=== PATIENT | male | born 1985 ===

== ENCOUNTER 2017-05-27 01:29 | Emergency (ER) | payer MEDICAID ==
[2017-05-27 01:30] VITALS: BMI 27.3
[2017-05-27] MEDS ORDERED: DiphenhydrAMINE 50 mg/ml Inj ONE (02:29)
--- NOTE | 2017-05-27 02:35 | ED PDOC ---
HPI: Psych/Substance Abuse Time Seen by Provider: 05/27/17 01:38 Chief Complaint (Nursing): Alcohol Ingestion Chief Complaint (Provider): Alcohol Ingestion ED Caveat: Intoxicated History Per: EMS, Other (police department) History/Exam Limitations: intoxication Onset/Duration Of Symptoms: Mins (prior to arrival) Current Symptoms Are (Timing): Still Present Additional Complaint(s): 31 year old male who presents to the emergency department via EMS, under police custody secondary to warrant, for an evaluation of intoxication prior to arrival. Denied any drug or intoxication use, however, appears intoxicated. Patient also reporting diffuse rash to buttocks. PMD: none provided Past Medical History Reviewed: Vital Signs, Unable To Obtain (intoxication) Vital Signs: Last Vital Signs Temp 98.1 F 05/27/17 01:43 Pulse 90 05/27/17 01:43 Resp 16 05/27/17 01:43 BP 157/108 H 05/27/17 01:43 Pulse Ox 98 05/27/17 01:43 - Medical History PMH: Anxiety, Gastrointestinal Ulcer - Surgical History Surgical History: No Surg Hx - Family History Family History: States: Unknown Family Hx - Social History Current smoker - smoking cessation education provided: No Alcohol: > 2 Drinks/Day Drugs: Denies - Home Medications Home Medications: Ambulatory Orders Medication Instructions Recorded Cetirizine Hydrochloride [Zyrtec] 10 mg PO DAILY #10 tab 05/29/14 Methylprednisolone [Medrol Dose 4 mg PO DAILY #21 mg 05/29/14 Pack (21 tabs)] Naproxen 500 mg PO Q12 #20 tab 06/25/14 Famotidine [Pepcid] 20 mg PO DAILY #30 tab 10/10/14 Codeine Phosphate/Promethazi 5 ml PO Q6 #80 ml 10/23/14 [Promethazine with Codeine 10 mg/5 ml-6.25 mg/] Guaifenesin/Pseudoephedrne HCl 1 tab PO DAILY PRN #30 ter 10/23/14 [Mucinex D 600 mg-60 mg] Butenafine HCl [Lotrimin Ultra] 0.5 gm TP BID #30 cream..g. 11/02/15 Clotrimazole 1% Cream [Lotrimin 1% 15 applic EXT BID #1 tube 05/27/17 CREAM] - Allergies Allergies/Adverse Reactions: Allergies Allergy/AdvReac Type Severity Reaction Status Date / Time No Known Allergies Allergy Verified 05/29/14 08:13 Review of Systems ROS Statement: Except As Marked, All Systems Reviewed And Found Negative Skin: Positive for: Rash (buttocks) Physical Exam - Reviewed Nursing Documentation Reviewed: Yes Vital Signs Reviewed: Yes - Physical Exam Appears: Positive for: No Acute Distress Head Exam: Positive for: ATRAUMATIC, NORMAL INSPECTION, NORMOCEPHALIC Skin: Positive for: Rash (erythematous buttocks). Negative for: Normal Color Cardiovascular/Chest: Positive for: Regular Rate, Rhythm, Chest Non Tender Respiratory: Positive for: Normal Breath Sounds. Negative for: Decreased Breath Sounds, Respiratory Distress Gastrointestinal/Abdominal: Positive for: Normal Exam, Soft. Negative for: Tenderness Neurologic/Psych: Positive for: Alert, Mood/Affect (intoxicated; agitated), Gait (unsteady) - ECG O2 Sat by Pulse Oximetry: 98 (RA) Pulse Ox Interpretation: Normal Medical Decision Making Medical Decision Making: Initial Impression: Alcohol intoxication; dermitis Initial Plan: * Alcohol serum * Ativan 2mg IM * Benadryl 50mg PO * Haldol 5mg IM ___ Time: 0230 --Patient refusing bloodwork and medication --Agitation level increased --Requiring restraints 600 Pt. awake and alert, steady gait, will d/c home. Scribe Attestation: Documented by Francia Bee, acting as a scribe for Vic Rivera MD. Provider Scribe Attestation: All medical record entries made by the Scribe were at my direction and personally dictated by me. I have reviewed the chart and agree that the record accurately reflects my personal performance of the history, physical exam, medical decision making, and the department course for this patient. I have also personally directed, reviewed, and agree with the discharge instructions and disposition. Disposition - Clinical Impression Clinical Impression: Alcohol abuse, Dermatitis - Disposition Referrals: Alcoholics Anonymous [Outside] [facility] [Outside] Disposition Time: 06:00 Condition: STABLE Prescriptions: Clotrimazole 1% Cream [Lotrimin 1% CREAM] 15 applic EXT BID #1 tube Instructions: Abuse of Alcohol (ED), Dermatitis (ED) Forms: [employer] Connect (Slovenian)
[2017-05-27 04:48] VITALS: TEMP 98.2
[2017-05-27 04:51] VITALS: BP 136/81; PULSE 90; RESP 17
[2017-05-27 06:41] VITALS: O2SAT 98
== END 2017-05-27 06:22 | disposition home or self-care (01) ==
LOC: H.ER 01:29
DX: F10.129 Alcohol abuse with intoxication, unspecified (principal); L30.9 Dermatitis, unspecified; F41.9 Anxiety disorder, unspecified
CPT/HCPCS: 80320; 96372; 99284; J1630; J2060

== ENCOUNTER 2017-07-04 20:55 | Emergency (ER) | payer MEDICAID ==
[2017-07-04 20:55] VITALS: BMI 27.3
[2017-07-04 21:03] VITALS: BP 154/98; PULSE 230; RESP 24; TEMP 99.1; O2SAT 95
--- NOTE | 2017-07-04 22:15 | ED PDOC ---
HPI: Psych/Substance Abuse Time Seen by Provider: 07/04/17 21:03 Chief Complaint (Nursing): Substance Abuse Chief Complaint (Provider): Substance abuse ED Caveat: Intoxicated History Per: EMS History/Exam Limitations: intoxication Additional Complaint(s): 31yo male, brought to ED by Mary VINES after he was found intoxicated, lying outside on the grass. Patient suspected to have used PCP per the police. Upon arrival, patient easily arousable. A full HPI and ROS is limited due to patient' s intoxicates status. Past Medical History Reviewed: Historical Data, Nursing Documentation, Vital Signs Vital Signs: Last Vital Signs Temp 99.1 F 07/04/17 21:00 Pulse 230 H 07/04/17 21:00 Resp 24 07/04/17 21:00 BP 154/98 H 07/04/17 21:00 Pulse Ox 95 07/04/17 21:00 - Medical History PMH: Anxiety, Gastrointestinal Ulcer - Family History Family History: States: Unknown Family Hx - Social History Alcohol: Occasional Drugs: Denies - Home Medications Home Medications: Ambulatory Orders Medication Instructions Recorded Cetirizine Hydrochloride [Zyrtec] 10 mg PO DAILY #10 tab 05/29/14 Methylprednisolone [Medrol Dose 4 mg PO DAILY #21 mg 05/29/14 Pack (21 tabs)] Naproxen 500 mg PO Q12 #20 tab 06/25/14 Famotidine [Pepcid] 20 mg PO DAILY #30 tab 10/10/14 Codeine Phosphate/Promethazi 5 ml PO Q6 #80 ml 10/23/14 [Promethazine with Codeine 10 mg/5 ml-6.25 mg/] Guaifenesin/Pseudoephedrne HCl 1 tab PO DAILY PRN #30 ter 10/23/14 [Mucinex D 600 mg-60 mg] Butenafine HCl [Lotrimin Ultra] 0.5 gm TP BID #30 cream..g. 11/02/15 Clotrimazole 1% Cream [Lotrimin 1% 15 applic EXT BID #1 tube 05/27/17 CREAM] - Allergies Allergies/Adverse Reactions: Allergies Allergy/AdvReac Type Severity Reaction Status Date / Time No Known Allergies Allergy Verified 05/29/14 08:13 Review of Systems Review Of Systems: ROS cannot be obtained secondary to pt's inabilty to answer questions. Physical Exam - Reviewed Nursing Documentation Reviewed: Yes Vital Signs Reviewed: Yes - Physical Exam Appears: Positive for: No Acute Distress Head Exam: Positive for: ATRAUMATIC, NORMAL INSPECTION, NORMOCEPHALIC Skin: Positive for: Normal Color Neck: Positive for: Supple Cardiovascular/Chest: Positive for: Tachycardia Respiratory: Positive for: Normal Breath Sounds. Negative for: Respiratory Distress Neurologic/Psych: Positive for: Mood/Affect (patient lethargic but easily arousable) - ECG O2 Sat by Pulse Oximetry: 95 (RA) Pulse Ox Interpretation: Normal Medical Decision Making Medical Decision Making: Impression: Alcohol/substance abuse Plan: -- Labs -- EKG Time: 2136 Patient awake, alert and oriented x3 with steady gait. He is requesting to be discharge home. Patient states his marijuana might have been laced with something. Patient stable for discharge home. Scribe Attestation: Documented by Nayely Le acting as a scribe for Shaun Palacios MD. Provider Attestation: All medical record entries made by the Scribe were at my direction and personally dictated by me. I have reviewed the chart and agree that the record accurately reflects my personal performance of the history, physical exam, medical decision making, and the department course for this patient. I have also personally directed, reviewed, and agree with the discharge instructions and disposition. Disposition - Clinical Impression Clinical Impression: Alcohol use - Disposition Disposition: Routine/Home Disposition Time: 21:37 Condition: STABLE Instructions: Alcohol Intoxication (ED) Forms: [place] [employer] (Greenlandic)
--- NOTE | 2017-07-05 14:11 | CARD ---
APPROVED REPORT EKG Measurement Heart [id number] <Conclusion> Sinus tachycardia Otherwise normal ECG
== END 2017-07-04 21:38 | disposition home or self-care (01) ==
LOC: H.ER 20:55
DX: F10.129 Alcohol abuse with intoxication, unspecified (principal); F41.9 Anxiety disorder, unspecified

== ENCOUNTER 2018-04-28 19:14 | Emergency (ER) | payer MEDICAID ==
--- NOTE | 2018-04-28 20:20 | ED PDOC ---
HPI: Psych/Substance Abuse Chief Complaint (Provider): substance abuse History Per: Patient, EMS Additional Complaint(s): 32 y/o male brought in by EMS for evaluation of possible substance abuse. Patient was found in public with his pants down. Patient awake, admits to drinking "a lot" and smoking "dust" tonight. Patient denies acute physical or psychiatric complaints. <Lilli Greer - Last Filed: 04/29/18 05:54> <Vic Rivera - Last Filed: 04/29/18 07:34> Time Seen by Provider: 04/28/18 20:01 Chief Complaint (Nursing): Substance Abuse Past Medical History Reviewed: Historical Data, Nursing Documentation, Vital Signs Vital Signs: Last Vital Signs Temp 96.9 F L 04/28/18 19:21 Pulse 105 H 04/28/18 19:21 Resp 18 04/28/18 19:21 BP 144/85 04/28/18 19:21 Pulse Ox 96 04/28/18 19:21 - Medical History PMH: No Chronic Diseases - Surgical History Surgical History: No Surg Hx - Family History Family History: States: No Known Family Hx <Lilli Greer - Last Filed: 04/29/18 05:54> Vital Signs: Last Vital Signs Temp 96.9 F L 04/28/18 19:21 Pulse 76 04/29/18 05:45 Resp 14 04/29/18 05:45 BP 119/71 04/29/18 05:45 Pulse Ox 96 04/29/18 07:28 <Vic Rivera - Last Filed: 04/29/18 07:34> - Allergies Allergies/Adverse Reactions: Allergies Allergy/AdvReac Type Severity Reaction Status Date / Time Unobtainable Allergy Verified 04/28/18 19:20 Review of Systems ROS Statement: Except As Marked, All Systems Reviewed And Found Negative <Lilli Greer - Last Filed: 04/29/18 05:54> Physical Exam - Reviewed Nursing Documentation Reviewed: Yes Vital Signs Reviewed: Yes - Physical Exam Appears: Positive for: Well, Non-toxic, No Acute Distress (intoxicated; slurred speech) Head Exam: Positive for: ATRAUMATIC, NORMAL INSPECTION, NORMOCEPHALIC Skin: Positive for: Normal Color Eye Exam: Positive for: Normal appearance ENT: Positive for: Normal ENT Inspection Cardiovascular/Chest: Positive for: Regular Rate, Rhythm Respiratory: Positive for: Normal Breath Sounds Gastrointestinal/Abdominal: Positive for: Normal Exam Back: Positive for: Normal Inspection Extremity: Positive for: Normal ROM Neurologic/Psych: Positive for: Alert, Oriented (x2) <Lilli Greer - Last Filed: 04/29/18 05:54> - Laboratory Results Result Diagrams: 04/28/18 20:20 04/28/18 20:20 - ECG O2 Sat by Pulse Oximetry: 96 - Progress ED Course And Treament: -cbc -cmp -alcohol -urine drug screen Patient attempting to get out of bed, agitated, unsteady gait. Patient unwilling to comply with alternative measures offered Patient restrained and medicated for acute agitation/safety 23:30 Patient sleeping, no distress. Vitals stable on monitor 04/29/18 1:00 Patient sleeping, no distress. Vitals stable on monitor 2:30 Patient sleeping, no distress. Vitals stable on monitor 4:00 Patient sleeping, no distress. Vitals stable on monitor 5:30 Patient sleeping, no distress. Vitals stable on monitor <Lilli Greer - Last Filed: 04/29/18 05:54> - Laboratory Results Result Diagrams: 04/28/18 20:20 04/28/18 20:20 <Vic Rivera - Last Filed: 04/29/18 07:34> Medical Decision Making Medical Decision MakinAM Will endorse to Dr. Oden pending sobriety <Vic Rivera - Last Filed: 04/29/18 07:34> Disposition - Disposition Disposition Time: 06:00 Patient Signed Over To: Vic Rivera Handoff Comments: pending sobriety/re-eval <Lilli Greer - Last Filed: 04/29/18 05:54> - Patient ED Disposition Is Patient to be Admitted: Transfer of Care - Disposition Disposition: Transfer of Care Disposition Time: 07:00 Patient Signed Over To: Noa Oden <Vic Rivera - Last Filed: 04/29/18 07:34> - Clinical Impression Clinical Impression: Polysubstance abuse - Disposition Condition: STABLE Instructions: Polysubstance Abuse
[2018-04-28 20:35] LABS: BASO % 0.3 % (0.0-2.0); EOS # 0.1 K/uL (0.0-0.7); EOS % 1.2 % (0.0-4.0); HEMOGLOBIN 15.8 g/dL (12.0-18.0); LYMPH % 30.9 % (20.0-40.0); MEAN CELL VOLUME 91.2 fl (80.0-94.0); MEAN CORPUSCULAR HEMOGLOBIN 31.2 pg (27.0-31.0); MEAN CORPUSCULAR HGB CONC 34.2 g/dL (33.0-37.0); MONO # 0.6 K/uL (0.0-0.8); MONO % 5.7 % (0.0-10.0); NEUT % 61.9 % (50.0-75.0); NRBC % 0.3 % (0.0-0.0); RBC 5.07 Mil/uL (4.40-5.90); RED CELL DISTRIBUTION WIDTH 13.3 % (11.5-14.5); WHITE BLOOD COUNT 9.7 K/uL (4.8-10.8)
[2018-04-28 20:41] LABS: ALB/GLOB RATIO 1.3 (1.0-2.1); ALBUMIN 4.6 g/dL (3.5-5.0); ALT/SGPT 44 U/L (21-72); AST/SGOT 40 U/L (17-59); BLOOD UREA NITROGEN 15 mg/dl (9-20); CALCIUM 9.2 mg/dL (8.4-10.2); GFR NON-AFRICAN AMERICAN > 60
[2018-04-28 22:13] LABS: BARBITURATES, UR NEGATIVE (NEGATIVE); BENZODIAZEPINES, UR NEGATIVE (NEGATIVE); OPIATES, UR NEGATIVE (NEGATIVE); PHENCYCLIDINE, UR POSITIVE (NEGATIVE)
--- NOTE | 2018-04-29 07:28 | ED PDOC ---
- Laboratory Results Result Diagrams: 04/28/18 20:20 04/28/18 20:20 - ECG O2 Sat by Pulse Oximetry: 96 (RA) Pulse Ox Interpretation: Normal Medical Decision Making Medical Decision Making: Time: 07 -- Patient endorsed to me by Dr. Rivera, pending clinical sobriety. Time: 950 -- At this time, patient is alert and oriented (x3) with a steady gait. Patient is stable for discharge home. Scribe Attestation: Documented by Gil Carrasco, acting as a scribe for Noa Oden MD. Provider Scribe Attestation: All medical record entries made by the Scribe were at my direction and personally dictated by me. I have reviewed the chart and agree that the record accurately reflects my personal performance of the history, physical exam, medical decision making, and the department course for this patient. I have also personally directed, reviewed, and agree with the discharge instructions and disposition. Disposition Counseled Patient/Family Regarding: Diagnosis, Need For Followup - Clinical Impression Clinical Impression: Polysubstance abuse, Alcohol abuse with intoxication - Disposition Disposition: Routine/Home Disposition Time: 09:52 Condition: STABLE Additional Instructions: FOLLOW-UP WITH PMD WITHIN 2 DAYS FOR REEVALUATION. Instructions: Alcohol Abuse and Alcoholism (DC), Polysubstance Abuse Forms: [employer] (Estonian)
[2018-04-29 10:28] VITALS: BP 132/89; PULSE 83; RESP 16; TEMP 98.4; O2SAT 98
== END 2018-04-29 10:25 | disposition home or self-care (01) ==
LOC: EDBD 19:14 → MERGE 19:14 → H.ER 19:14
DX: F10.129 Alcohol abuse with intoxication, unspecified (principal); Y90.7 Blood alcohol level of 200-239 mg/100 ml
CPT/HCPCS: 80053; 80320; 80324; 80345; 80346; 80349; 80353; 80358; 80361; 82948; 83992; 85025; 96372; 99285; J1630; J2060

== ENCOUNTER 2018-05-18 02:42 | Emergency (ER) | payer SELFPAY ==
[2018-05-18 02:42] VITALS: BMI 27.3
[2018-05-18 02:54] VITALS: TEMP 99.5; O2SAT 97
--- NOTE | 2018-05-18 03:12 | ED PDOC ---
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 According to EMS and patient, he did drugs and was found trespassing on private property, then arrested. Upon ED arrival, patient was immediately released from police custody. He admits to smoking marijuana rolled and dipped in PCP with his girlfriend and then somehow, someone "played a prank" on him and told him to go somewhere, which ended up being the private property where he was found trespassing. Patient also believed the geophysics scientist were "pranking" him. Otherwise denies depression, suicidal ideation, and homicidal ideation. Patient offers no physical complaints at this time. PMD: none provided Past Medical History Reviewed: Historical Data, Nursing Documentation, Vital Signs Vital Signs: Last Vital Signs Temp 99.5 F 05/18/18 02:46 Pulse 114 H 05/18/18 02:46 Resp 20 05/18/18 02:46 BP 131/100 H 05/18/18 02:46 Pulse Ox 97 05/18/18 02:46 - Medical History PMH: Anxiety, Gastrointestinal Ulcer - Surgical History Other surgeries: left great toe surgery - Family History Family History: States: Unknown Family Hx - Social History Current smoker - smoking cessation education provided: No Alcohol: Social Drugs: Cannabis, Other (PCP) - Home Medications Home Medications: Ambulatory Orders Medication Instructions Recorded Cetirizine Hydrochloride [Zyrtec] 10 mg PO DAILY #10 tab 05/29/14 Methylprednisolone [Medrol Dose 4 mg PO DAILY #21 mg 05/29/14 Pack (21 tabs)] RX: Naproxen 500 mg PO Q12 #20 tab 06/25/14 Famotidine [Pepcid] 20 mg PO DAILY #30 tab 10/10/14 Codeine Phosphate/Promethazi 5 ml PO Q6 #80 ml 10/23/14 [Promethazine with Codeine 10 mg/5 ml-6.25 mg/] Guaifenesin/Pseudoephedrne HCl 1 tab PO DAILY PRN #30 ter 10/23/14 [Mucinex D 600 mg-60 mg] Butenafine HCl [Lotrimin Ultra] 0.5 gm TP BID #30 cream..g. 11/02/15 RX: Clotrimazole 1% Cream 15 applic EXT BID #1 tube 05/27/17 [Lotrimin 1% CREAM] - Allergies Allergies/Adverse Reactions: Allergies Allergy/AdvReac Type Severity Reaction Status Date / Time No Known Allergies Allergy Verified 04/30/18 08:04 Review of Systems ROS Statement: Except As Marked, All Systems Reviewed And Found Negative Psych: Positive for: Other (marijuana and PCP use). Negative for: Depression, Suicidal ideation (or homicidal ideation) Physical Exam - Reviewed Nursing Documentation Reviewed: Yes Vital Signs Reviewed: Yes - Physical Exam Appears: Positive for: No Acute Distress Head Exam: Positive for: ATRAUMATIC, NORMOCEPHALIC Skin: Positive for: Normal Color, Warm Eye Exam: Positive for: Normal appearance, EOMI, PERRL Extremity: Positive for: Normal ROM. Negative for: Tenderness, Swelling Neurologic/Psych: Positive for: Alert, Oriented (x3), Gait (steady), Other (s peech clear) - ECG O2 Sat by Pulse Oximetry: 97 (RA) Pulse Ox Interpretation: Normal Medical Decision Making Medical Decision Making: Time: 307 Initial Impression: substance abuse Initial Plan: --Pt stable for discharge. There is no further medical or psychiatric intervention required at this time in the ED. Scribe Attestation: Documented by Alice Harding, acting as a scribe for Christiano Goff MD. Provider Scribe Attestation: All medical record entries made by the Scribe were at my direction and personally dictated by me. I have reviewed the chart and agree that the record accurately reflects my personal performance of the history, physical exam, medical decision making, and the department course for this patient. I have also personally directed, reviewed, and agree with the discharge instructions and disposition. Disposition - Clinical Impression Clinical Impression: Polysubstance abuse - Patient ED Disposition Is Patient to be Admitted: No Doctor Will See Patient In The: Office Counseled Patient/Family Regarding: Studies Performed, Diagnosis, Need For Followup - Disposition Referrals: [facility] [Outside] Disposition: Routine/Home Disposition Time: 03:30 Condition: GOOD Instructions: Polysubstance Abuse (DC)
[2018-05-18 03:23] VITALS: BP 149/86; PULSE 107; RESP 18
== END 2018-05-18 03:53 | disposition home or self-care (01) ==
LOC: H.ER 02:42
DX: F19.10 Other psychoactive substance abuse, uncomplicated (principal)